=== PATIENT | female | born 1955 | race Caucasian/White ===

== ENCOUNTER → 2019-09-05 | Outpatient (CLI) | payer MEDICARE, OTHER ==
--- NOTE | 2019-09-05 13:12 | US ---
EXAMINATION TYPE: US carotid duplex BILAT DATE OF EXAM: 09/05/2019 COMPARISON: NONE CLINICAL HISTORY: I65.23 OCCLUSION AND STENOSIS OF SARBJIT CAROTID ARTERIES. Stroke x 20 years ago EXAM MEASUREMENTS: RIGHT: Peak Systolic Velocity (PSV) cm/sec ----- Right CCA: 56.4 ----- Right ICA: 73.5 ----- Right ECA: 61.0 ICA/CCA ratio: 1.3 RIGHT: End Diastole cm/sec ----- Right CCA: 18.0 ----- Right ICA: 29.6 ----- Right ECA: 12.1 LEFT: Peak Systolic Velocity (PSV) cm/sec ----- Left CCA: 64.5 ----- Left ICA: 55.4 ----- Left ECA: 60.1 ICA/CCA ratio: 0.9 LEFT: End Diastole cm/sec ----- Left CCA: 16.5 ----- Left ICA: 21.3 ----- Left ECA: 9.5 VERTEBRALS (direction of flow): Right Vertebral: Antegrade Left Vertebral: Antegrade Rhythm: Normal No elevated velocities, no significant stenosis or plaque visualized. Bilateral wall thickening. IMPRESSION: Mild degree of grayscale atheromatous plaquing with no sonographically evident hemodynam ically significant stenosis within either visualized carotid arterial system.. Criteria for Assigning % of Stenosis / Diameter reduction (Estimation based on the indirect measurements of the internal carotid artery velocities (ICA PSV). 1. Normal (no stenosis)=ICA PSV < 125 cm/s: ratio < 2.0: ICA EDV<40 cm/s. 2. Less than 50% stenosis=ICA PSV < 125 cm/s: ratio < 2.0: ICA EDV<40 cm/s. 3. 50 to 69% stenosis=ICA PSV of 125 to 230 cm/s: ration 2.0 ? 4.0: ICA EDV 40-100 cm/s. 4. Greater than 70% stenosis to near occlusion= ICA PSV > 230 cm/s: ratio > 4.0: ICA EDV > 100 cm/s. 5. Near occlusion= ICA PSV velocities may be low or undetectable: variable ratio and ICA EDV. 6. Total occlusion=unable to detect flow.
--- NOTE | 2019-09-05 17:46 | ECHOF ---
Referral Reason:I34.0 nonrhematic mitral regurgitation MEASUREMENTS -------- HEIGHT: 167.6 cm WEIGHT: 56.7 kg BP: RVIDd: 2.9 cm (< 3.3) IVSd: 1.0 cm (0.6 - 1.1) LVIDd: 3.2 cm (3.9 - 5.3) LVPWd: 1.2 cm (0.6 - 1.1) IVSs: 1.1 cm LVIDs: 2.5 cm LVPWs: 1.0 cm LAESV Index (A-L): 19.95 ml/m Ao Diam: 2.3 cm (2.0 - 3.7) AV Cusp: 1.6 cm (1.5 - 2.6) LA Diam: 2.3 cm (2.7 - 3.8) MV EXCURSION: 9.910 mm (> 18.000) MV EF SLOPE: 59 mm/s (70 - 150) EPSS: 0.6 cm MV E Ko: 0.74 m/s MV DecT: 165 ms MV A Ko: 0.95 m/s MV E/A Ratio: 0.78 AR PHT: 616 ms RAP: 5.00 mmHg RVSP: 20.68 mmHg FINDINGS -------- Sinus rhythm. This was a technically good study. The left ventricular size is normal. There is borderline concentric left ventricular hypertrophy. Overall left ventricular systolic function is normal with, an EF between 55 - 60 %. The diastolic filling pattern is normal for the age of the patient 15.31. The right ventricle is normal in size. Normal LA size by volume 22+/-6 ml/m2. The right atrial size is normal. Interatrial and interventricular septum intact. The aortic valve was not well visualized. There is mild aortic regurgitation. There is no evidenc e of aortic stenosis. The mitral valve leaflets are mildly thickened. Mild mitral regurgitation is present. Trace tricuspid regurgitation present. There is no evidence of pulmonary hypertension. The right ventricular systolic pressure, as measured by Doppler, is 20.68mmHg. There is no pulmonic regurgitation present. The aortic root size is normal. The inferior vena cava is mildly dilated. There is a trivial pericardial effusion present. CONCLUSIONS -------- 1. Sinus rhythm. 2. This was a technically good study. 3. The left ventricular size is normal. 4. There is borderline concentric left ventricular hypertrophy. 5. Overall left ventricular systolic function is normal with, an EF between 55 - 60 %. 6. The diastolic filling pattern is normal for the age of the patient 15.31 7. The right ventricle is normal in size. 8. Normal LA size by volume 22+/-6 ml/m2. 9. The right atrial size is normal. 10. Interatrial and interventricular septum intact. 11. The aortic valve was not well visualized. 12. There is mild aortic regurgitation. 13. There is no evidence of aortic stenosis. 14. The mitral valve leaflets are mildly thickened. 15. Mild mitral regurgitation is present. 16. Trace tricuspid regurgitation present. 17. There is no evidence of pulmonary hypertension. 18. The right ventricular systolic pressure, as measured by Doppler, is 20.68mmHg. 19. There is no pulmonic regurgitation present. 20. The aortic root size is normal. 21. The inferior vena cava is mildly dilated. 22. There is a trivial pericardial effusion present. [employer] SPECIALIST: Deepa Ugalde RDCS
== END | disposition home or self-care (01) ==
LOC: EEVIPCON 08-29 11:30 → RADECHMAIN 11:37
PROVIDERS: ATTEND Internal Medicine
DX: I65.23 Occlusion and stenosis of bilateral carotid arteries (principal); I08.0 Rheumatic disorders of both mitral and aortic valves; I31.3 Pericardial effusion (noninflammatory); I87.8 Other specified disorders of veins
CPT/HCPCS: 93306; 93880

== ENCOUNTER 2021-12-13 15:56 | Inpatient (IN) | payer MEDICARE, OTHER ==
[2021-12-13] MEDS ORDERED: SODIUM CHLORIDE 0.9% 500 ML 500 ML IV ONE (16:20)
[2021-12-13 16:47] LABS: Appearance,Urine Cloudy (Clear); Bacteria,Urine Rare /hpf; Bilirubin,Urine Negative (Negative); Blood,Urine Large (Negative); Color,Urine Yellow; Glucose,Urine (UA) Negative (Negative); Hyaline Casts,Urine 1 /lpf (0-2); Ketones,Urine Negative (Negative); Leukocyte Esterase,Urine Negative (Negative); Mucus,Urine Moderate /hpf; Nitrite,Urine Negative (Negative); Protein,Urine 2+ (Negative); RBC,Urine 5 /hpf (0-5); Squamous Epithelial Cell,Urine 4 /hpf (0-4); Urobilinogen,Urine <2.0 mg/dL (<2.0); WBC,Urine 4 /hpf (0-5)
--- NOTE | 2021-12-13 16:51 | ED ---
Fall HPI - General Chief Complaint: Fall Stated Complaint: rt hip pain Time Seen by Provider: 12/13/21 16:14 Source: patient, family, RN notes reviewed Mode of arrival: EMS Limitations: physical limitation - History of Present Illness Initial Comments: This is a 65-year-old female who presents to the emergency department for bilateral hip pain following a fall. Patient is aphasic following a stroke in 1998, and she does have a guardian with her. She states that yesterday morning, she fell on the left hip, and significant bruising was noted. However, she has been complaining of worsening pain in the right hip as opposed to the left, and states that it is radiating down the leg. Her guardian is unsure when she last saw her neurologist. She has also been treated for upper respiratory symptoms for the last 2 weeks. It is noted that she continues to cough and seems overall very fatigued and rather pale. She is usually able to get herself up, but has not been able to for the last few days. Her PCP gave her a z-conrad and medrol dose conrad, she finished the z-conrad yesterday and has one day left on the medrol dose conrad for her URI sx. she is not on oxygen at home, however she is noted to have a saturation of 89-90% on room air during triage. Patient was then placed on 2L oxygen via NC. Despite the low oxygen saturation, the patient denies any s hortness of breath or chest pain. MD Complaint: fall Place Fall Occurred: home Loss of Consciousness: none Symptoms Prior to Fall: none - Related Data Home Medications Medication Instructions Recorded Confirmed Atorvastatin [Lipitor] 10 mg PO DAILY 05/08/16 12/13/21 Citalopram Hydrobromide [CeleXA] 40 mg PO DAILY 05/08/16 12/13/21 Fexofenadine HCl [Viviane Allergy] 180 mg PO DAILY 05/08/16 12/13/21 Fludrocortisone [Florinef] 0.1 mg PO DAILY 05/08/16 12/13/21 Tolterodine ER [Detrol LA] 2 mg PO DAILY 05/08/16 12/13/21 diazePAM [Valium] 5 mg PO BID@0900,1600 05/08/16 12/13/21 tiZANidine HCL [Zanaflex] 4 mg PO BID@0900,1600 /16 12/13/21 Acetaminophen Tab [Tylenol Tab] 1,000 mg PO Q6H PRN 12/13/21 12/13/21 Acetaminophen-Codeine 300-30mg 1 tab PO BID@0900,1600 12/13/21 12/13/21 [Tylenol w/codeine #3] Aspirin EC [Ecotrin Low Dose] 81 mg PO DAILY 12/13/21 12/13/21 Cholecalciferol [Vitamin D3 (25 50 mcg PO HS@1600 12/13/21 12/13/21 Mcg = 1000 Iu)] Pantoprazole [Protonix] 40 mg PO DAILY 12/13/21 12/13/21 Allergies Allergy/AdvReac Type Severity Reaction Status Date / Time No Known Allergies Allergy Verified 12/13/21 19:22 Review of Systems ROS Statement: Those systems with pertinent positive or pertinent negative responses have been documented in the HPI. ROS Other: All systems not noted in ROS Statement are negative. Constitutional: Denies: fever, chills ENT: Denies: ear pain, throat pain Respiratory: Reports: cough. Denies: dyspnea Cardiovascular: Denies: chest pain, palpitations Endocrine: Reports: fatigue Gastrointestinal: Denies: abdominal pain, nausea, vomiting, diarrhea Genitourinary: Denies: urgency, dysuria Musculoskeletal: Reports: other (right hip pain). 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 Patient walks with quad cane and uses W/C prn History of Any Multi-Drug Resistant Organisms: None Reported Past Surgical History: Hysterectomy Additional Past Surgical History / Comment(s): colostomy due to CVA and patient no longer in control of bowels. Past Anesthesia/Blood Transfusion Reactions: No Reported Reaction Past Psychological History: Depression Past Alcohol Use History: None Reported Past Drug Use History: None Reported - Past Family History Mother Family Medical History: No Reported History General Exam Limitations: physical limitation General appearance: alert, in no apparent distress Head exam: Present: atraumatic, normocephalic, normal inspection ENT exam: Present: mucous membranes dry, normal external ear exam Neck exam: Present: normal inspection. Absent: tenderness, meningismus, lymphadenopathy Respiratory exam: Present: decreased breath sounds. Absent: respiratory di stress, wheezes, rales, rhonchi, stridor Cardiovascular Exam: Present: regular rate, normal rhythm, normal heart sounds. Absent: systolic murmur, diastolic murmur, rubs, gallop, clicks GI/Abdominal exam: Present: soft, normal bowel sounds. Absent: distended, tenderness, guarding, rebound, rigid Extremities exam: Present: normal inspection, full ROM, normal capillary refill. Absent: tenderness, pedal edema, joint swelling, calf tenderness Left Hip exam: Present: ecchymosis. Absent: tenderness, swelling, deformity, crepitus, dislocation, erythema, external rotation, internal rotation, s hortening Upper Leg exam: Present: normal inspection Neurovascular tendon exam: Present: no vascular compromise Right Hip exam: Present: normal inspection. Absent: tenderness, swelling, ecchymosis, deformity, dislocation, erythema, external rotation, internal rotation, shortening Upper Leg exam: Present: normal inspection Neurovascular tendon exam: Absent: pulse deficit, abnormal cap refill Neurological exam: Present: alert, oriented X3 Psychiatric exam: Present: normal affect, normal mood Skin exam: Present: warm, dry, intact, pallor. Absent: rash Course Vital Signs 12/13/21 12/13/21 12/13/21 16:01 16:30 16:45 Temperature 98.5 F Pulse Rate 94 Respiratory 18 18 Rate Blood Pressure 119/67 O2 Sat by Pulse 90 L 88 L 95 Oximetry 12/13/21 19:18 Temperature Pulse Rate 88 Respiratory 18 Rate Blood Pressure 122/70 O2 Sat by Pulse 94 L Oximetry Medical Decision Making - Medical Decision Making This is a 65-year-old female who presents to the emergency department for hip pain following a fall. A bilateral hip x-ray was obtained and revealed no acute abnormalities. It is unclear why she has right hip pain with radiation down the right leg if she injured the left hip, however workup at this time did not identify an acute cause. Chest x-ray obtained, which revealed no acute cardiopulmonary process. However, the patient is requiring oxygen via nasal cannula, as her oxygen saturation has been 89-90% on room air. Patient placed on 2L and now has oxygen saturations around 96%. Urinalysis did reveal blood in the urine. Her guardian states that she is dehydrated and has not had anything to drink for the past day. Patient denies seeing any vladimir blood in her urine. Patient rehydrated with 1500 mL normal saline. CTA of the chest obtained which did not identify a pulmonary embolism or other acute abnormality. CBC revealed an elevated WBC with left shift, however no infection has been identified at this point. The patient will be admitted under Dr. Portillo. I have started the patient on 1g of Ceftriaxone and ordered an abdominal US per his request. - Lab Data Result diagrams: 12/13/21 17:57 12/13/21 17:57 Lab Results 12/13/21 12/13/21 12/13/21 Range/Units 16:22 17:01 17:57 WBC 16.4 H (3.8-10.6) k/uL RBC 3.84 (3.80-5.40) m/uL Hgb 12.3 (11.4-16.0) gm/dL Hct 38.6 (34.0-46.0) % MCV 100.5 H (80.0-100.0) fL MCH 32.0 (25.0-35.0) pg MCHC 31.8 (31.0-37.0) g/dL RDW 13.1 (11.5-15.5) % Plt Count 200 (150-450) k/uL MPV 7.8 Neutrophils % 91 % Lymphocytes % 4 % Monocytes % 4 % Eosinophils % 0 % Basophils % 0 % Neutrophils # 14.9 H (1.3-7.7) k/uL Lymphocytes # 0.7 L (1.0-4.8) k/uL Monocytes # 0.6 (0-1.0) k/uL Eosinophils # 0.0 (0-0.7) k/uL Basophils # 0.0 (0-0.2) k/uL ESR 52 H (0-20) mm/hr Sodium (137-145) mmol/L Potassium (3.5-5.1) mmol/L Chloride (98-107) mmol/L Carbon Dioxide (22-30) mmol/L Anion Gap mmol/L BUN (7-17) mg/dL Creatinine (0.52-1.04) mg/dL Est GFR (CKD-EPI)AfAm (>60 ml/min/1.73 sqM) Est GFR (CKD-EPI)NonAf (>60 ml/min/1.73 sqM) Glucose (74-99) mg/dL Plasma Lactic Acid Jarek (0.7-2.0) mmol/L Calcium (8.4-10.2) mg/dL Total Bilirubin (0.2-1.3) mg/dL AST (14-36) U/L ALT (4-34) U/L Alkaline Phosphatase (38-126) U/L C-Reactive Protein (<1.0) mg/dL Total Protein (6.3-8.2) g/dL Albumin (3.5-5.0) g/dL Urine Color Yellow Urine Appearance Cloudy H (Clear) Urine pH 6.0 (5.0-8.0) Ur Specific [place] 1.030 (1.001-1.035) Urine Protein 2+ H (Negative) Urine Glucose (UA) Negative (Negative) Urine Ketones Negative (Negative) Urine Blood Large H (Negative) Urine Nitrite Negative (Negative) Urine Bilirubin Negative (Negative) Urine Urobilinogen <2.0 (<2.0) mg/dL Ur Leukocyte Esterase Negative (Negative) Urine RBC 5 (0-5) /hpf Urine WBC 4 (0-5) /hpf Ur Squamous Epith Cells 4 (0-4) /hpf Urine Bacteria Rare H (None) /hpf Hyaline Casts 1 (0-2) /lpf Urine Mucus Moderate H (None) /hpf Influenza Type A (PCR) Not Detected (Not Detectd) Influenza Type B (PCR) Not Detected (Not Detectd) RSV (PCR) Not Detected (Not Detectd) SARS-CoV-2 (PCR) Not Detected (Not Detectd) 12/13/21 12/13/21 Range/Units 17:57 17:57 WBC (3.8-10.6) k/uL RBC (3.80-5.40) m/uL Hgb (11.4-16.0) gm/dL Hct (34.0-46.0) % MCV (80.0-100.0) fL MCH (25.0-35.0) pg MCHC (31.0-37.0) g/dL RDW (11.5-15.5) % Plt Count (150-450) k/uL MPV Neutrophils % % Lymphocytes % % Monocytes % % Eosinophils % % Basophils % % Neutrophils # (1.3-7.7) k/uL Lymphocytes # (1.0-4.8) k/uL Monocytes # (0-1.0) k/uL Eosinophils # (0-0.7) k/uL Basophils # (0-0.2) k/uL ESR (0-20) mm/hr Sodium 137 (137-145) mmol/L Potassium 3.8 (3.5-5.1) mmol/L Chloride 104 (98-107) mmol/L Carbon Dioxide 30 (22-30) mmol/L Anion Gap 3 mmol/L BUN 40 H (7-17) mg/dL Creatinine 0.48 L (0.52-1.04) mg/dL Est GFR (CKD-EPI)AfAm >90 (>60 ml/min/1.73 sqM) Est GFR (CKD-EPI)NonAf >90 (>60 ml/min/1.73 sqM) Glucose 110 H (74-99) mg/dL Plasma Lactic Acid Jarek 1.0 (0.7-2.0) mmol/L Calcium 8.5 (8.4-10.2) mg/dL Total Bilirubin 0.7 (0.2-1.3) mg/dL AST 66 H (14-36) U/L ALT 71 H (4-34) U/L Alkaline Phosphatase 76 (38-126) U/L C-Reactive Protein 14.4 H (<1.0) mg/dL Total Protein 5.5 L (6.3-8.2) g/dL Albumin 2.8 L (3.5-5.0) g/dL Urine Color Urine Appearance (Clear) Urine pH (5.0-8.0) Ur Specific [place] (1.001-1.035) Urine Protein (Negative) Urine Glucose (UA) (Negative) Urine Ketones (Negative) Urine Blood (Negative) Urine Nitrite (Negative) Urine Bilirubin (Negative) Urine Urobilinogen (<2.0) mg/dL Ur Leukocyte Esterase (Negative) Urine RBC (0-5) /hpf Urine WBC (0-5) /hpf Ur Squamous Epith Cells (0-4) /hpf Urine Bacteria (None) /hpf Hyaline Casts (0-2) /lpf Urine Mucus (None) /hpf Influenza Type A (PCR) (Not Detectd) Influenza Type B (PCR) (Not Detectd) RSV (PCR) (Not Detectd) SARS-CoV-2 (PCR) (Not Detectd) Disposition Clinical Impression: Low O2 saturation Disposition: ADMITTED IP TO THIS HOSP Referrals: Miladys Portillo MD [Primary Care Provider] - 1-2 days
--- NOTE | 2021-12-13 16:55 | XR ---
EXAMINATION TYPE: XR chest 1V DATE OF EXAM: 12/13/2021 COMPARISON: 05/31/2010 HISTORY: Short of breath. Fall. TECHNIQUE: Single view FINDINGS: Heart is normal. Lungs are clear of infiltrate. There is no heart failure. There are no hil ar masses. Costophrenic angles are clear. IMPRESSION: No active cardiopulmonary disease. No change.
--- NOTE | 2021-12-13 16:57 | XR ---
EXAMINATION TYPE: XR Hip Bilateral Complete DATE OF EXAM: 12/13/2021 COMPARISON: NONE HISTORY: Fall. Bilateral hip pain TECHNIQUE: 4 views FINDINGS: The acetabula appear intact. Proximal femurs are intact. I see no fracture nor dislocation. Hip joint spaces are fairly normal. IMPRESSION: Negative bilateral hip exam. No fracture seen.
[2021-12-13 17:49] LABS: Influenza A Not Detected (Not Detectd); Influenza B Not Detected (Not Detectd)
[2021-12-13 18:38] LABS: Basophils % (A) 0 %; Eosinophils % (A) 0 %; HCT 38.6 % (34.0-46.0); HGB 12.3 gm/dL (11.4-16.0); Lymphocytes # (A) 0.7 k/uL (1.0-4.8); Lymphocytes % (A) 4 %; MCHC 31.8 g/dL (31.0-37.0); MCV 100.5 fL (80.0-100.0); Mean Platelet Volume 7.8; Monocytes # (A) 0.6 k/uL (0-1.0); Monocytes % (A) 4 %; Neutrophils # (A) 14.9 k/uL (1.3-7.7); Neutrophils % (A) 91 %; Platelet Count 200 k/uL (150-450); RBC 3.84 m/uL (3.80-5.40); RDW 13.1 % (11.5-15.5); WBC 16.4 k/uL (3.8-10.6)
[2021-12-13 18:45] LABS: Potassium 3.8 mmol/L (3.5-5.1)
[2021-12-13 18:48] LABS: ALT 71 U/L (4-34); AST 66 U/L (14-36); African American GFR (CKD) >90 (>60 ml/min/1.73 sqM); Albumin 2.8 g/dL (3.5-5.0); Alkaline Phosphatase 76 U/L (38-126); Anion Gap 3 mmol/L; Blood Urea Nitrogen 40 mg/dL (7-17); Calcium 8.5 mg/dL (8.4-10.2); Carbon Dioxide 30 mmol/L (22-30); Chloride 104 mmol/L (98-107); Glucose 110 mg/dL (74-99); Non-African American GFR(CKD) >90 (>60 ml/min/1.73 sqM); Sodium 137 mmol/L (137-145); Total Bilirubin 0.7 mg/dL (0.2-1.3); Total Protein 5.5 g/dL (6.3-8.2)
[2021-12-13 19:04] LABS: C Reactive Protein 14.4 mg/dL (<1.0)
[2021-12-13 19:13] LABS: Erythrocyte Sedimentation Rate 52 mm/hr (0-20)
[2021-12-13] MEDS ORDERED: SODIUM CHLORIDE 0.9% 1,000 ML IV STA (19:38)
--- NOTE | 2021-12-13 20:59 | CT ---
EXAMINATION TYPE: CT angio chest DATE OF EXAM: 12/13/2021 COMPARISON: None HISTORY: chest pain CT DLP: 234.6 mGycm Automated exposure control for dose reduction was used. CONTRAST: Performed with IV Contrast, patient injected with 100 mL of Isovue 300. There are Three-D postprocessed images. Images obtained from the thoracic inlet to the diaphragm with IV contrast. There is an enlarged thyroid gland consistent with multinodular goiter. Thoracic aorta is atheromatou s. There is no mediastinal adenopathy. There are no hilar masses. Heart size is fairly normal. There is no pericardial effusion. There is normal contrast opacification of the pulmonary arteries. There are no filling defects. There is some mild atelectasis at the lung bases. The thoracic spine is intact. No compression fracture. Sternum is intact. IMPRESSION: No evidence of pulmonary embolism. Atherosclerotic vascular disease. No aneurysm. Mild subsegmental a telectasis at the lung bases. No suspicious pulmonary mass.
[2021-12-13] MEDS ORDERED: ACETAMINOPHEN TAB 325 MG TAB PO PRN (22:45)
[2021-12-13] MEDS ORDERED: NALOXONE 0.4 MG/ML 1 ML VIAL IV PRN (22:45)
[2021-12-13] MEDS ORDERED: ONDANSETRON 4 MG/2 ML VIAL IVP PRN (22:45)
[2021-12-13] MEDS ORDERED: cefTRIAXone IN SWFI 1,000 MG/10 ML SYRINGE IVP STA (22:49)
[2021-12-13] MEDS: SODIUM CHLORIDE 0.9% 1,000 ML IV SCH (23:09)
[2021-12-14 00:12] LABS: Amylase 43 U/L (30-110); Lipase 26 U/L (23-300)
--- NOTE | 2021-12-14 00:20 | US ---
EXAMINATION TYPE: US abdomen limited DATE OF EXAM: 12/13/2021 COMPARISON: MRI liver 2016 CLINICAL HISTORY: elevated liver enzymes, r/o source of infection. Elevated liver enzymes. Hx of hepa tic hemangiomas and 8 mm pancreatic body/tail cyst seen on 2016 MRI. EXAM MEASUREMENTS: Liver Length: 14.0 cm Gallbladder Wall: 0.36 cm CBD: 0.37 cm Right Kidney: 9.1 x 4.4 x 4.7 cm Pancreas: Hypoechoic appearing focus with posterior enhancement measuring 1.2 x 0.7 x 0.7 cm. Liver: Hepatic hemangioma right liver dome measuring 1.9 x 2.0 x 2.0 cm Gallbladder: Limited visualization; slightly thickened wall Evidence for sonographic Easton's sign: No CBD: Limited visualization due to overlying bowel gas and patient inability to take deep breath; CBD appears wnl at pancreatic head. Right Kidney: No hydronephrosis or masses seen Difficult exam due to patient having right-sided paralysis and inability to take deep breaths. IMPRESSION: There is a 6 mm cystic appearing area in the body of the pancreas. Bile ducts are not dilated. There is a 12 x 7 mm cystic area in the pancreas also. Single hyperechoic focus in the superior right lobe of the liver could 2 cm be a hemangioma.. This appears unchanged compared to old CT scan of 04/12/2016 and therefore benign. I do not have any recent CT scan to compare the pancreas. No gallstones.
[2021-12-14] MEDS: oxyCODONE-APAP 5-325MG 1 EACH TAB PO PRN ×2 (05:50→13:36)
[2021-12-14] MEDS: LORATADINE 10 MG TAB PO SCH (08:24)
[2021-12-14] MEDS: tiZANidine 4 MG TAB PO SCH ×2 (08:24→15:08)
[2021-12-14] MEDS: Acetaminophen-Codeine 300-30mg TAB PO SCH ×2 (08:24→15:08)
[2021-12-14] MEDS: ATORVASTATIN 10 MG TAB PO SCH (08:25)
[2021-12-14] MEDS: FLUDROCORTISONE 0.1 MG TAB PO SCH (08:25)
[2021-12-14] MEDS: PANTOPRAZOLE 40 MG TABLET PO SCH (08:25)
[2021-12-14] MEDS: CITALOPRAM HYDROBROMIDE 20 MG TAB PO SCH (08:25)
[2021-12-14] MEDS: ASPIRIN 81 MG PO SCH (08:25)
[2021-12-14] MEDS: diazePAM 5 MG TAB PO SCH ×2 (08:27→15:08)
[2021-12-14] MEDS ORDERED: IOPAMIDOL CONTRAST (ORAL USE) VIAL PO PRN (13:32)
--- NOTE | 2021-12-14 14:57 | P.HPIM ---
History of Present Illness H&P Date: 12/14/21 HISTORY OF PRESENT ILLNESS This is a 65-year-old female patient with past medical history of CVA occurred during carotid artery surgery in 1998 with aphasia and right-sided paralysis, hyperlipidemia, vitamin D deficiency, seasonal ALLERGIES, gastroesophageal reflux disease, overactive bladder. Patient sustained a fall onto her left hip with significant bruising with worsening pain in her right hip as well with radiation down her right leg. Patient has had upper respiratory infection symptoms for the past 2 weeks and recently treated with Z-Dayday and Medrol Dosepak. She's had increasing fatigue and cough with yellow sputum. She still feels very congested. She denies having any shortness of breath. Patient presented to [facility] emergency center for further evaluation. Initial pulse ox was 88-90%. She was found to be afebrile, heart rate 94, blood pressure 119/67. EKG was a sinus rhythm. WBC 16.4, hemoglobin 12.3, platelet count 200. Electrolytes normal. BUN 40 creatinine 0.48. Blood sugar 110. Urinalysis cloudy, blood large. Influenza A, influenza B, RSV, SARS Covid PCR all not detected. Lactic acid 1.0. C- reactive protein 14.4. Sed rate 52. ProBNP 883. AST 66, ALT 71. Amylase 43, lipase 26. Albumin 2.8. Bilateral hip x-rays negative. No fracture seen. Abdominal ultrasound revealed 6 mm cystic appearing area in the body of the pancreas. Bile ducts are not dilated. 12 x 7 mm cystic area in the pancreas also. Single hyperechoic focus on the superior right lobe of the liver could be hemangioma. This appears unchanged compared to old CAT scan on [address] angiogram of the chest revealed no evidence of pulmonary embolism. Atherosclerotic vascular disease. No aneurysm. Mild subsegmental atelectasis at the lung bases. No suspicious pulmonary mass. Chest x-ray reveals no acute cardio pulmonary disease. Patient was provided 500 mL fluid bolus, 1 dose of ceftriaxone, blood culture obtained. Patient is seen today in the emergency center waiting for a bed on the [facility] floor. REVIEW OF SYSTEMS Constitutional: No fever, no chills, no night sweats. No weight change. No weakness, fatigue or lethargy. No daytime sleepiness. EENT: No headache. No blurred vision or double vision, no loss of vision. No loss of Hearing, no ringing in the ears, no dizziness. No nasal drainage or congestion. No epistaxis. No sore throat. Lungs: No shortness of breath, cough, no sputum production. No wheezing. Cardiovascular: No chest pain, no lower extremity edema. No palpitations. No paroxysmal nocturnal dyspnea. No orthopnea. No lightheadedness or dizziness. No syncopal episodes. Abdominal: No abdominal pain. No nausea, vomiting. No diarrhea. No constipation. No bloody or tarry stools. No loss of appetite. Genitourinary: No dysuria, increased frequency, urgency. No urinary retention. Musculoskeletal: No myalgias. No muscle weakness, noted gait dysfunction, no frequent falls. No back pain. No neck pain. Reports bilateral hip pain more so on the right. Integumentary: No wounds, no lesions. No rash or pruritus. No unusual bruising. No change in hair or nails. Neurologic: Chronic aphasia. No facial droop. No change in mentation. No head injury. No headache. Chronic right-sided paralysis. No paresthesia. Psychiatric: No depression. No anxiety. No mood swings. Endocrine: No abnormal blood sugars. No weight change. No excessive sweating or thirst. No cold intolerance. 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 FAMILY HISTORY Father at age 89 from old age. Mother is alive at age 72 with heart failure. PHYSICAL EXAMINATION Gen: This is a 65-year-old female. She is resting on the ER and appears to be uncomfortable canary to right hip. HEENT: Head is atraumatic, normocephalic. Pupils equal, round. Sclerae is anicteric. NECK: Supple. No JVD. No lymphadenopathy. No thyromegaly. LUNGS: Clear to auscultation. No wheezes or rhonchi. No intercostal retractions. HEART: Regular rate and rhythm. No murmur. ABDOMEN: Soft. Bowel sounds are present. No masses. No tenderness. Ostomy with formed stool. EXTREMITIES: No pedal edema. No calf tenderness. NEUROLOGICAL: Patient is awake, alert and oriented x3. Right sided spastic hemiplegia, aphasia. ASSESSMENT AND PLAN 1. Hypoxia without acute respiratory failure of unclear etiology, possible underlying COPD. Consult with pulmonary medicine. 2. Recent treatment for upper respiratory infection with Z-Dayday and Medrol Dosepak. 3. Bilateral hip pain without fracture seen on x-ray. Patient continues to have significant pain in the right hip. Continue Ponder 5 every 4 hours as needed 4. 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 5. Hyperlipidemia. Continue atorvastatin 10 mg daily. 6. Vitamin D deficiency. Continue supplement. 7. Seasonal ALLERGIES. Continue Viviane 180 mg daily. 8. Gastroesophageal reflux disease. Continue Protonix 40 mg daily. 9. Overactive bladder. Continue Detrol LA 2 mg daily. 10. Remote history of tobacco use. 11. 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 Continue Zanaflex 4 mg twice daily, Percocet one every 4 hours as needed, Valium 5 mg twice daily. 12. DVT prophylaxis. Lovenox subcu. Patient will be admitted to the hospital for a minimum of 2 night stay. DISCHARGE PLAN TBD. Consult with PT and OT. Impression and plan of care have been directed as dictated by the signing physician. Carolyne Dhillon nurse practitioner acting as scribe for signing physician. 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 Patient walks with quad cane and uses W/C prn History of Any Multi-Drug Resistant Organisms: None Reported Past Surgical History: Hysterectomy Additional Past Surgical History / Comment(s): colostomy due to CVA and patient no longer in control of bowels. Past Anesthesia/Blood Transfusion Reactions: No Reported Reaction Past Psychological History: Depression Past Alcohol Use History: None Reported Past Drug Use History: None Reported - Past Family History Mother Family Medical History: No Reported History Father Family Medical History: CVA/TIA Additional Family Medical History / Comment(s): Father after a fall with brain bleed. Medications and Allergies Home Medications Medication Instructions Recorded Confirmed Type Atorvastatin [Lipitor] 10 mg PO DAILY 05/08/16 12/13/21 History Citalopram Hydrobromide [CeleXA] 40 mg PO DAILY 05/08/16 12/13/21 History Fexofenadine HCl [Viviane Allergy] 180 mg PO DAILY 05/08/16 12/13/21 History Fludrocortisone [Florinef] 0.1 mg PO DAILY 05/08/16 12/13/21 History Tolterodine ER [Detrol LA] 2 mg PO DAILY 05/08/16 12/13/21 History tiZANidine HCL [Zanaflex] 4 mg PO BID@0900,1600 05/08/16 12/13/21 History Acetaminophen Tab [Tylenol] 1,000 mg PO Q6H PRN 12/13/21 12/13/21 History Aspirin EC [Ecotrin Low Dose] 81 mg PO DAILY 12/13/21 12/13/21 History Cholecalciferol [Vitamin D3 (25 50 mcg PO HS@1600 12/13/21 12/13/21 History Mcg = 1000 Iu)] Pantoprazole [Protonix] 40 mg PO DAILY 12/13/21 12/13/21 History HYDROcodone/APAP 5-325MG [Ponder 1 each PO Q4HR PRN #18 tab 12/16/21 Rx 5-325] Ipratropium-Albuterol Nebulize 3 ml INHALATION RT-TID ml 12/16/21 Rx [Duoneb 0.5 mg-3 mg/3 ml Soln] diazePAM [Valium] 5 mg PO BID@0900,1600 #6 tab 12/16/21 Rx Allergies Allergy/AdvReac Type Severity Reaction Status Date / Time No Known Allergies Allergy Verified 12/13/21 19:22 Physical Exam Vitals: Vital Signs Temp Pulse Resp BP Pulse Ox 12/14/21 07:11 98.1 F 89 18 124/74 95 12/13/21 19:18 88 18 122/70 94 L 12/13/21 16:45 18 95 12/13/21 16:30 88 L 12/13/21 16:01 98.5 F 94 18 119/67 90 L Intake and Output 12/13/21 12/14/21 12/14/21 22:59 06:59 14:59 Other: Weight 61.235 kg Results CBC & Chem 7: 12/13/21 17:57 12/14/21 15:59 Labs: Abnormal Lab Results - Last 24 Hours (Table) 12/13/21 12/13/21 12/13/21 Range/Units 16:22 17:57 17:57 WBC 16.4 H (3.8-10.6) k/uL MCV 100.5 H (80.0-100.0) fL Neutrophils # 14.9 H (1.3-7.7) k/uL Lymphocytes # 0.7 L (1.0-4.8) k/uL ESR 52 H (0-20) mm/hr BUN 40 H (7-17) mg/dL Creatinine 0.48 L (0.52-1.04) mg/dL Glucose 110 H (74-99) mg/dL AST 66 H (14-36) U/L ALT 71 H (4-34) U/L C-Reactive Protein 14.4 H (<1.0) mg/dL Total Protein 5.5 L (6.3-8.2) g/dL Albumin 2.8 L (3.5-5.0) g/dL Urine Appearance Cloudy H (Clear) Urine Protein 2+ H (Negative) Urine Blood Large H (Negative) Urine Bacteria Rare H (None) /hpf Urine Mucus Moderate H (None) /hpf
[2021-12-14] MEDS: CHOLECALCIFEROL 25 MCG (1000 IU) TABLET PO SCH (15:08)
--- NOTE | 2021-12-14 15:57 | CT ---
EXAMINATION TYPE: CT abdomen pelvis wo con DATE OF EXAM: 12/14/2021 COMPARISON: CT 04/12/2016 HISTORY: abdominal pain, hematuria CT DLP: 582.6 mGycm Automated exposure control for dose reduction was used. TECHNIQUE: Helical acquisition of images from the lung bases through the pelvis. Patient received or al contrast only. FINDINGS: Lack of intravenous contrast could compromise sensitivity. LUNG BASES: Lung bases show dependent atelectatic changes, small effusion AORTA: No significant abnormality is appreciated. LIVER/GB: Low dense foci within the liver are again noted and show a similar appearance. PANCREAS: No significant abnormality is seen. SPLEEN: No significant abnormality is seen. ADRENALS: No significant abnormality is seen. KIDNEYS: There are 2 nonobstructive calculi in the right kidney 1 in the anterior calyx of the midpol e the right kidney, and another the upper pole, some mild hydronephrosis on the right shows a stable appearance REPRODUCTIVE ORGANS: Not seen URINARY BLADDER: Contrast material present within the urinary bladder1. BOWEL: No evident bowel obstruction. Ostomy present in the left lower quadrant. High dense material is present within the rectum which may represent inspissated fecal debris, chronic, similar to prior exam. FREE AIR: No Free Air is visible. ASCITES: None visible. PELVIC ADENOPATHY: None visualized. RETROPERITONEAL ADENOPATHY: No Retroperitoneal Adenopathy visible. OSSEOUS STRUCTURES: No significant abnormality is seen. IMPRESSION: NONCONTRAST EXAM. BASILAR ATELECTASIS, SMALL EFFUSION. NONOBSTRUCTIVE RIGHT RENAL CALCULUS. POORLY CH ARACTERIZED LIVER LESIONS POSTOP CHANGES.
[2021-12-14 16:44] LABS: African American GFR (CKD) >90 (>60 ml/min/1.73 sqM); Blood Urea Nitrogen 21 mg/dL (7-17); Non-African American GFR(CKD) >90 (>60 ml/min/1.73 sqM)
[2021-12-14] MEDS: HYDROcodone/APAP 5-325MG 1 EACH TAB PO PRN (19:20)
[2021-12-14] MEDS: ACETAMINOPHEN TAB 500 MG TAB PO PRN (21:00)
[2021-12-14] MEDS: ALPRAZolam 0.25 MG TAB PO PRN (21:00)
[2021-12-14] MEDS: SODIUM CHLORIDE 0.9% 1,000 ML IV SCH ×2 (23:49→23:50)
[2021-12-15] MEDS: oxyCODONE-APAP 5-325MG 1 EACH TAB PO PRN (04:41)
[2021-12-15] MEDS: Acetaminophen-Codeine 300-30mg TAB PO SCH ×2 (08:35→16:54)
[2021-12-15] MEDS: PANTOPRAZOLE 40 MG TABLET PO SCH (08:35)
[2021-12-15] MEDS: OXYBUTYNIN XL 5 MG TAB.ER.24 PO SCH (08:36)
[2021-12-15] MEDS: ENOXAPARIN 40 MG/0.4 ML SYRINGE SQ SCH (08:36)
[2021-12-15] MEDS: diazePAM 5 MG TAB PO SCH ×2 (08:36→16:55)
[2021-12-15] MEDS: LORATADINE 10 MG TAB PO SCH (08:36)
[2021-12-15] MEDS: ATORVASTATIN 10 MG TAB PO SCH (08:36)
[2021-12-15] MEDS: CITALOPRAM HYDROBROMIDE 20 MG TAB PO SCH (08:36)
[2021-12-15] MEDS: ASPIRIN 81 MG PO SCH (08:36)
--- NOTE | 2021-12-15 09:47 | P.PN ---
Subjective Progress Note Date: 12/15/21 HISTORY OF PRESENT ILLNESS This is a 65-year-old female patient with past medical history of CVA occurred during carotid artery surgery in 1998 with aphasia and right-sided paralysis, hyperlipidemia, vitamin D deficiency, seasonal ALLERGIES, gastroesophageal reflux disease, overactive bladder. Patient sustained a fall onto her left hip with significant bruising with worsening pain in her right hip as well with radiation down her right leg. Patient has had upper respiratory infection symptoms for the past 2 weeks and recently treated with Z-Dayday and Medrol Dosepak. She's had increasing fatigue and cough with yellow sputum. She still feels very congested. She denies having any shortness of breath. Patient presented to [facility] emergency center for further evaluation. Initial pulse ox was 88-90%. She was found to be afebrile, heart rate 94, blood pressure 119/67. EKG was a sinus rhythm. WBC 16.4, hemoglobin 12.3, platelet count 200. Electrolytes normal. BUN 40 creatinine 0.48. Blood sugar 110. Urinalysis cloudy, blood large. Influenza A , influenza B, RSV, SARS Covid PCR all not detected. Lactic acid 1.0. C- reactive protein 14.4. Sed rate 52. ProBNP 883. AST 66, ALT 71. Amylase 43, lipase 26. Albumin 2.8. Bilateral hip x-rays negative. No fracture seen. Abdominal ultrasound revealed 6 mm cystic appearing area in the body of the pancreas. Bile ducts are not dilated. 12 x 7 mm cystic area in the pancreas also. Single hyperechoic focus on the superior right lobe of the liver could be hemangioma. This appears unchanged compared to old CAT scan on [address] angiogram of the chest revealed no evidence of pulmonary embolism. Atherosclerotic vascular disease. No aneurysm. Mild subsegmental atelectasis at the lung bases. No suspicious pulmonary mass. Chest x-ray reveals no acute cardio pulmonary disease. Patient was provided 500 mL fluid bolus, 1 dose of ceftriaxone, blood culture obtained. Patient is seen today in the emergency center waiting for a bed on the [facility] floor. 12/15: Patient is seen today on the [facility] floor. She has been afebrile, heart rate 82, blood pressure 144/81, pulse ox 98% on room air. Repeat BUN 21 and creatinine 0.45 was ordered yesterday afternoon in anticipation of CAT scan with contrast which is delayed for 24 hours. CAT scan of the abdomen and pelvis with out contrast revealed basilar atelectasis, small effusion. Nonobstructive right renal calculus. Poorly characterized liver lesions. CAT scan with contrast will be performed today. Patient continues to complain of pain in the right hip area. She currently denies shortness of breath. She will be seen today by Dr. Kerr. REVIEW OF SYSTEMS Constitutional: No fever, no chills, no night sweats. No weight change. No weakness, fatigue or lethargy. No daytime sleepiness. EENT: No headache. No blurred vision or double vision, no loss of vision. No loss of Hearing, no ringing in the ears, no dizziness. No nasal drainage or congestion. No epistaxis. No sore throat. Lungs: No shortness of breath, cough, no sputum production. No wheezing. Cardiovascular: No chest pain, no lower extremity edema. No palpitations. No paroxysmal nocturnal dyspnea. No orthopnea. No lightheadedness or dizziness. No syncopal episodes. Abdominal: No abdominal pain. No nausea, vomiting. No diarrhea. No constipation. No bloody or tarry stools. No loss of appetite. Genitourinary: No dysuria, increased frequency, urgency. No urinary retention. Musculoskeletal: No myalgias. No muscle weakness, noted gait dysfunction, no frequent falls. No back pain. No neck pain. Reports right hip/leg pain Integumentary: No wounds, no lesions. No rash or pruritus. No unusual b ruising. No change in hair or nails. Neurologic: Chronic aphasia. No facial droop. No change in mentation. No head injury. No headache. Chronic right-sided paralysis. No paresthesia. Psychiatric: No depression. No anxiety. No mood swings. Endocrine: No abnormal blood sugars. No weight change. No excessive sweating or thirst. No cold intolerance. PHYSICAL EXAMINATION Gen: This is a 65-year-old female. She is resting on the ER and appears to be uncomfortable canary to right hip. HEENT: Head is atraumatic, normocephalic. Pupils equal, round. Sclerae is anicteric. NECK: Supple. No JVD. No lymphadenopathy. No thyromegaly. LUNGS: Clear to auscultation. No wheezes or rhonchi. No intercostal retractions. HEART: Regular rate and rhythm. No murmur. ABDOMEN: Soft. Bowel sounds are present. No masses. No tenderness. Ostomy with formed stool. EXTREMITIES: No pedal edema. No calf tenderness. NEUROLOGICAL: Patient is awake, alert and oriented x3. Right sided spastic hemiplegia, aphasia. ASSESSMENT AND PLAN 1. Hypoxia without acute respiratory failure of unclear etiology, possible underlying COPD. Consult with pulmonary medicine. 2. Recent treatment for upper respiratory infection with Z-Dayday and Medrol Dosepak. 3. Bilateral hip pain without fracture seen on x-ray. Patient continues to have significant pain in the right hip. Continue Raven 5 every 4 hours as needed 4. 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 5. Hyperlipidemia. Continue atorvastatin 10 mg daily. 6. Vitamin D deficiency. Continue supplement. 7. Seasonal ALLERGIES. Continue Viviane 180 mg daily. 8. Gastroesophageal reflux disease. Continue Protonix 40 mg daily. 9. Overactive bladder. Continue Detrol LA 2 mg daily. 10. Remote history of tobacco use. 11. 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 Continue Zanaflex 4 mg twice daily, Percocet one every 4 hours as needed, Valium 5 mg twice daily. 12. DVT prophylaxis. Lovenox subcu. DISCHARGE PLAN TBD. Consult with PT and OT. Impression and plan of care have been directed as dictated by the signing physician. Carolyne Dhillon nurse practitioner acting as scribe for signing physician. Objective - Vital Signs Vital signs: Vital Signs Temp 97.3 F L 12/15/21 05:29 Pulse 82 12/15/21 05:29 Resp 18 12/15/21 05:29 BP 144/81 12/15/21 05:29 Pulse Ox 98 12/15/21 05:29 Intake & Output 12/14/21 12/15/21 12/15/21 18:59 06:59 18:59 Intake Total 600 Balance 600 Weight 61.235 kg Intake: Intake, IV Titration 600 Amount Sodium Chloride 0.9% 1, 600 000 ml @ 50 mls/hr IV . Q20H FARHAN Rx#:[id number] Other: Voiding Method Bedpan # Voids 3 - Labs CBC & Chem 7: 12/13/21 17:57 12/14/21 15:59 Labs: Abnormal Lab Results - Last 24 Hours (Table) 12/14/21 Range/Units 15:59 BUN 21 H (7-17) mg/dL Creatinine 0.45 L (0.52-1.04) mg/dL Microbiology - Last 24 Hours (Table) 12/13/21 23:00 Blood Culture - Preliminary Blood No Growth after 24 hours 12/13/21 22:45 Blood Culture - Preliminary Blood No Growth after 24 hours
[2021-12-15] MEDS: FLUDROCORTISONE 0.1 MG TAB PO SCH (09:51)
[2021-12-15] MEDS: tiZANidine 4 MG TAB PO SCH ×2 (09:51→16:55)
[2021-12-15] MEDS: HYDROcodone/APAP 5-325MG 1 EACH TAB PO PRN ×2 (11:25→22:23)
[2021-12-15 14:09] VITALS: BMI 21.7
--- NOTE | 2021-12-15 14:32 | P.CNPUL ---
History of Present Illness Consult date: 12/15/21 Reason for consult: dyspnea History of present illness: 65-year-old patient, previous history of an extensive stroke leading this patient with right-sided weakness/paralysis/hemiplegia and excessive aphasia. The patient was hospitalized as the patient was feeling congested at home and she had also increased fatigue and pulmonary consultation was requested and the patient was found to be having some limited hypoxemia. The patient is currently on 2 L of oxygen nasal cannula with a pulse ox of 94-95%. She has a weak cough. She has a congested cough. Denies having any aspiration. The patient has no fever. The patient is no chills. The patient has received a course of Z-Dayday and Medrol Dosepak on outpatient basis pain currently she is not taking any form of respiratory medications steroids and antibiotics. Furthermore, a computed tomography scan of the chest was completed and the patient was found to have underlying COPD. Atelectatic changes in lung bases. No other airspace disease or pneumonias. The patient also had a CAT scan of the abdomen that showed right renal calculus. Atelectatic changes were again seen in lung bases. The white cell count of 16.4 with hemoglobin 12.3. BUN is at 21 with a creatinine of 0.4. Influenza A and B was negative.: 19 testing was negative. RSV by PCR was also negative. Pro-calcitonin level is at 883. Review of Systems Constitutional: No fever, no chills, no night sweats. No weight change. No weakness, fatigue or lethargy. No daytime sleepiness. EENT: No headache. No blurred vision or double vision, no loss of vision. No loss of Hearing, no ringing in the ears, no dizziness. No nasal drainage or congestion. No epistaxis. No sore throat. Lungs: No shortness of breath, cough, no sputum production. No wheezing. Cardiovascular: No chest pain, no lower extremity edema. No palpitations. No paroxysmal nocturnal dyspnea. No orthopnea. No lightheadedness or dizziness. No syncopal episodes. Abdominal: No abdominal pain. No nausea, vomiting. No diarrhea. No constipation. No bloody or tarry stools. No loss of appetite. Genitourinary: No dysuria, increased frequency, urgency. No urinary retention. Musculoskeletal: No myalgias. No muscle weakness, noted gait dysfunction, no frequent falls. No back pain. No neck pain. Reports bilateral hip pain more so on the right. Integumentary: No wounds, no lesions. No rash or pruritus. No unusual bruising. No change in hair or nails. Neurologic: Chronic aphasia. No facial droop. No change in mentation. No head injury. No headache. Chronic right-sided paralysis. No paresthesia. Psychiatric: No depression. No anxiety. No mood swings. Endocrine: No abnormal blood sugars. No weight change. No excessive sweating or thirst. No cold intolerance. 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 Patient walks with quad cane and uses W/C prn History of Any Multi-Drug Resistant Organisms: None Reported Past Surgical History: Hysterectomy Additional Past Surgical History / Comment(s): colostomy due to CVA and patient no longer in control of bowels. Past Anesthesia/Blood Transfusion Reactions: No Reported Reaction Past Psychological History: Depression Past Alcohol Use History: None Reported Past Drug Use History: None Reported - Past Family History Mother Family Medical History: No Reported History Additional Family Medical History / Comment(s): Mother of CHF at the age of 72 yrs. Father Family Medical History: CVA/TIA Additional Family Medical History / Comment(s): Father after a fall with brain bleed. Medications and Allergies Home Medications Medication Instructions Recorded Confirmed Type Atorvastatin [Lipitor] 10 mg PO DAILY 05/08/16 12/13/21 History Citalopram Hydrobromide [CeleXA] 40 mg PO DAILY 05/08/16 12/13/21 History Fexofenadine HCl [Viviane Allergy] 180 mg PO DAILY 05/08/16 12/13/21 History Fludrocortisone [Florinef] 0.1 mg PO DAILY 05/08/16 12/13/21 History Tolterodine ER [Detrol LA] 2 mg PO DAILY 05/08/16 12/13/21 History diazePAM [Valium] 5 mg PO BID@0900,1600 05/08/16 12/13/21 History tiZANidine HCL [Zanaflex] 4 mg PO BID@0900,1600 05/08/16 12/13/21 History Acetaminophen Tab [Tylenol Tab] 1,000 mg PO Q6H PRN 12/13/21 12/13/21 History Acetaminophen-Codeine 300-30mg 1 tab PO BID@0900,1600 12/13/21 12/13/21 History [Tylenol w/codeine #3] Aspirin EC [Ecotrin Low Dose] 81 mg PO DAILY 12/13/21 12/13/21 History Cholecalciferol [Vitamin D3 (25 50 mcg PO HS@1600 12/13/21 12/13/21 History Mcg = 1000 Iu)] Pantoprazole [Protonix] 40 mg PO DAILY 12/13/21 12/13/21 History Allergies Allergy/AdvReac Type Severity Reaction Status Date / Time No Known Allergies Allergy Verified 12/13/21 19:22 Physical Exam Vitals: Vital Signs Temp Pulse Pulse Pulse Resp BP BP 12/15/21 12:20 98.1 F 82 18 156/85 12/15/21 05:29 97.3 F L 82 18 144/81 12/14/21 20:00 98.3 F 75 16 107/68 12/14/21 19:15 16 12/14/21 18:24 97.8 F 74 18 123/75 12/14/21 17:46 72 18 134/84 Pulse Ox 12/15/21 12:20 98 12/15/21 05:29 98 12/14/21 20:00 96 12/14/21 19:15 12/14/21 18:24 95 12/14/21 17:46 96 Intake and Output 12/14/21 12/15/21 12/15/21 22:59 06:59 14:59 Intake Total 600 Balance 600 Intake: Intake, IV Titration 600 Amount Sodium Chloride 0.9% 1, 600 000 ml @ 50 mls/hr IV . Q20H ON LICENSE OF [facility] Rx#:[id number] Other: Voiding Method Bedpan Bedpan # Voids 3 Weight 61.235 kg Gen: This is a 65-year-old female. She is resting on the ER and appears to be uncomfortable canary to right hip. Head exam was generally normal. There was no scleral icterus or corneal arcus. Mucous membranes were moist. HEENT: Head is atraumatic, normocephalic. Pupils equal, round. Sclerae is anicteric. NECK: Supple. No JVD. No lymphadenopathy. No thyromegaly. LUNGS: Clear to auscultation. No wheezes or rhonchi. No intercostal retractions. HEART: Regular rate and rhythm. No murmur. ABDOMEN: Soft. Bowel sounds are present. No masses. No tenderness. Ostomy with formed stool. EXTREMITIES: No pedal edema. No calf tenderness. NEUROLOGICAL: Patient is awake, alert and oriented x3. Right sided spastic hem iplegia, aphasia. Results - Laboratory Findings CBC and BMP: 12/13/21 17:57 12/14/21 15:59 Abnormal lab findings: Abnormal Labs 12/13/21 12/13/21 12/13/21 16:22 17:57 17:57 WBC 16.4 H MCV 100.5 H Neutrophils # 14.9 H Lymphocytes # 0.7 L ESR 52 H BUN 40 H Creatinine 0.48 L Glucose 110 H AST 66 H ALT 71 H C-Reactive Protein 14.4 H Total Protein 5.5 L Albumin 2.8 L Urine Appearance Cloudy H Urine Protein 2+ H Urine Blood Large H Urine Bacteria Rare H Urine Mucus Moderate H 12/14/21 15:59 WBC MCV Neutrophils # Lymphocytes # ESR BUN 21 H Creatinine 0.45 L Glucose AST ALT C-Reactive Protein Total Protein Albumin Urine Appearance Urine Protein Urine Blood Urine Bacteria Urine Mucus - Diagnostic Findings Chest x-ray: image reviewed Assessment and Plan Plan: 1 COPD exacerbation, no clear indication for pneumonia. Could be a bout of bronchitis that was treated on outpatient basis. Has some limited congestion. CAT scan of the chest showing atelectatic changes in lung bases bilaterally 2 acute hypoxic respiratory failure currently on 2 L of oxygen by nasal cannula 3 history of CVA with expressive aphasia and right-sided weakness 4 hyperlipidemia 5 degenerative arthritis 6 ALLERGIC rhinitis 7 overactive bladder Plan Aspiration precautions We'll put the patient on DuoNeb nebulized treatments 3 times a day Pulmonary toileting. No need for antibiotics and steroids. Resume all medication will continue to follow.
[2021-12-15] MEDS: SODIUM CHLORIDE 0.9% 1,000 ML IV SCH (16:30)
[2021-12-15] MEDS: CHOLECALCIFEROL 25 MCG (1000 IU) TABLET PO SCH (16:55)
[2021-12-15] MEDS: IPRATROPIUM-ALBUTEROL 3 ML NEB INHALATION SCH (21:11)
[2021-12-15] MEDS: ALPRAZolam 0.25 MG TAB PO PRN (23:31)
[2021-12-16] MEDS: ACETAMINOPHEN TAB 500 MG TAB PO PRN (00:40)
[2021-12-16 03:05] VITALS: RESP 20; TEMP 97.6
[2021-12-16] MEDS: HYDROcodone/APAP 5-325MG 1 EACH TAB PO PRN ×2 (04:26→11:54)
[2021-12-16 07:26] VITALS: BP 147/88; PULSE 78
--- NOTE | 2021-12-16 07:44 | P.DS ---
Providers Date of admission: 12/13/21 21:43 Expected date of discharge: 12/16/21 Attending physician: Miladys Portillo Consults: 12/14/21 13:27 Consult Physician Routine Consulting Provider: Linden Kerr Consult Reason/Comments: hypoxia, possible COPD, hx smoking Do you want consulting provider notified?: Yes Primary care physician: Miladys Portillo Hospital Course: HISTORY OF PRESENT ILLNESS This is a 65-year-old female patient with past medical history of CVA occurred during carotid artery surgery in 1998 with aphasia and right-sided paralysis, hyperlipidemia, vitamin D deficiency, seasonal ALLERGIES, gastroesophageal reflux disease, overactive bladder. Patient sustained a fall onto her left hip with significant bruising with worsening pain in her right hip as well with radiation down her right leg. Patient has had upper respiratory infection symptoms for the past 2 weeks and recently treated with Z-Dayday and Medrol Dosepak. She's had increasing fatigue and cough with yellow sputum. She still feels very congested. She denies having any shortness of breath. Patient presented to [facility] emergency center for further evaluation. Initial pulse ox was 88-90%. She was found to be afebrile, heart rate 94, blood pressure 119/67. EKG was a sinus rhythm. WBC 16.4, hemoglobin 12.3, platelet count 200. Electrolytes normal. BUN 40 creatinine 0.48. Blood sugar 110. Urinalysis cloudy, blood large. Influenza A, influenza B, RSV, SARS Covid PCR all not detected. Lactic acid 1.0. C- reactive protein 14.4. Sed rate 52. ProBNP 883. AST 66, ALT 71. Amylase 43, lipase 26. Albumin 2.8. Bilateral hip x-rays negative. No fracture seen. Abdominal ultrasound revealed 6 mm cystic appearing area in the body of the pancreas. Bile ducts are not dilated. 12 x 7 mm cystic area in the pancreas also. Single hyperechoic focus on the superior right lobe of the liver could be hemangioma. This appears unchanged compared to old CAT scan on [address] angiogram of the chest revealed no evidence of pulmonary embolism. Atherosclerotic vascular disease. No aneurysm. Mild subsegmental atelectasis at the lung bases. No suspicious pulmonary mass. Chest x-ray reveals no acute cardio pulmonary disease. Patient was provided 500 mL fluid bolus, 1 dose of ceftriaxone, blood culture obtained. Patient is seen today in the emergency center waiting for a bed on the [facility] floor. 12/15: Patient is seen today on the [facility] floor. She has been afebrile, heart rate 82, blood pressure 144/81, pulse ox 98% on room air. Repeat BUN 21 and creatinine 0.45 was ordered yesterday afternoon in anticipation of CAT scan with contrast which is delayed for 24 hours. CAT scan of the abdomen and pelvis without contrast revealed basilar atelectasis, small effusion. Nonobstructive right renal calculus. Poorly characterized liver lesions. CAT scan with contrast will be performed today. Patient continues to complain of pain in the right hip area. She currently denies shortness of breath. She will be seen today by Dr. Kerr. 12/16: She was seen yesterday by Dr. Kerr for COPD exacerbation, could be bronchitis but no clear indication for pneumonia. Patient was started on nebulizer treatments, no antibiotics or steroids. Patient has been afebrile, heart rate 70, blood pressure 147/88, pulse ox 97% on room air. Patient denies having any shortness of breath or cough. She continues to have pain in the right leg radiating down her leg. Discharge plan is for [facility] and patient will be discharged today in stable condition. DISCHARGE DIAGNOSES 1. Acute hypoxia respiratory failure secondary to exacerbation of COPD. 2. Recent treatment for upper respiratory infection with Z-Dayday and Medrol Dosepak. 3. Bilateral hip pain without fracture seen on x-ray. 4. 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 5. Hyperlipidemia. 6. Vitamin D deficiency. 7. Seasonal ALLERGIES. 8. Gastroesophageal reflux disease. 9. Overactive bladder. 10. Remote history of tobacco use. 11. 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 DISCHARGE PLAN Subacute rehab at [facility]. Greater than 35 minutes was utilized and coordinating patient's discharge. Impression and plan of care have been directed as dictated by the signing physician. Carolyne Dhillon nurse practitioner acting as scribe for signing physician. Patient Condition at Discharge: Stable Plan - Discharge Summary Discharge Rx Participant: No New Discharge Prescriptions: New Ipratropium-Albuterol Nebulize [Duoneb 0.5 mg-3 mg/3 ml Soln] 3 ml INHALATION RT-TID ml HYDROcodone/APAP 5-325MG [[place] 5-325] 1 each PO Q4HR PRN #18 tab PRN Reason: Moderate Pain Continue Tolterodine ER [Detrol LA] 2 mg PO DAILY Citalopram Hydrobromide [CeleXA] 40 mg PO DAILY Atorvastatin [Lipitor] 10 mg PO DAILY Fludrocortisone [Florinef] 0.1 mg PO DAILY Fexofenadine HCl [Viviane Allergy] 180 mg PO DAILY tiZANidine HCL [Zanaflex] 4 mg PO BID@0900,1600 Aspirin EC [Ecotrin Low Dose] 81 mg PO DAILY Acetaminophen Tab [Tylenol] 1,000 mg PO Q6H PRN PRN Reason: Pain diazePAM [Valium] 5 mg PO BID@0900,1600 #6 tab Pantoprazole [Protonix] 40 mg PO DAILY Cholecalciferol [Vitamin D3 (25 Mcg = 1000 Iu)] 50 mcg PO HS@1600 Discontinued Acetaminophen-Codeine 300-30mg [Tylenol w/codeine #3] 1 tab PO BID@0900,1600 Discharge Medication List Atorvastatin [Lipitor] 10 mg PO DAILY 05/08/16 [History] Citalopram Hydrobromide [CeleXA] 40 mg PO DAILY 05/08/16 [History] Fexofenadine HCl [Viviane Allergy] 180 mg PO DAILY 05/08/16 [History] Fludrocortisone [Florinef] 0.1 mg PO DAILY 05/08/16 [History] Tolterodine ER [Detrol LA] 2 mg PO DAILY 05/08/16 [History] tiZANidine HCL [Zanaflex] 4 mg PO BID@0900,1600 05/08/16 [History] Acetaminophen Tab [Tylenol] 1,000 mg PO Q6H PRN 12/13/21 [History] Aspirin EC [Ecotrin Low Dose] 81 mg PO DAILY 12/13/21 [History] Cholecalciferol [Vitamin D3 (25 Mcg = 1000 Iu)] 50 mcg PO HS@1600 12/13/21 [History] Pantoprazole [Protonix] 40 mg PO DAILY 12/13/21 [History] HYDROcodone/APAP 5-325MG [[place] 5-325] 1 each PO Q4HR PRN #18 tab 12/16/21 [Rx] Ipratropium-Albuterol Nebulize [Duoneb 0.5 mg-3 mg/3 ml Soln] 3 ml INHALATION RT-TID ml 12/16/21 [Rx] diazePAM [Valium] 5 mg PO BID@0900,1600 #6 tab 12/16/21 [Rx] Follow up Appointment(s)/Referral(s): Miladys Portillo MD [Primary Care Provider] - 1 Week Discharge Disposition: TRANSFER TO SNF/ECF
[2021-12-16] MEDS: ASPIRIN 81 MG PO SCH (08:15)
[2021-12-16] MEDS: OXYBUTYNIN XL 5 MG TAB.ER.24 PO SCH (08:15)
[2021-12-16] MEDS: CITALOPRAM HYDROBROMIDE 20 MG TAB PO SCH (08:16)
[2021-12-16] MEDS: Acetaminophen-Codeine 300-30mg TAB PO SCH (08:16)
[2021-12-16] MEDS: PANTOPRAZOLE 40 MG TABLET PO SCH (08:16)
[2021-12-16] MEDS: diazePAM 5 MG TAB PO SCH (08:16)
[2021-12-16] MEDS: ATORVASTATIN 10 MG TAB PO SCH (08:16)
[2021-12-16] MEDS: LORATADINE 10 MG TAB PO SCH (08:16)
[2021-12-16] MEDS: FLUDROCORTISONE 0.1 MG TAB PO SCH (08:16)
[2021-12-16] MEDS: tiZANidine 4 MG TAB PO SCH (08:16)
[2021-12-16] MEDS: ENOXAPARIN 40 MG/0.4 ML SYRINGE SQ SCH (08:17)
[2021-12-16] MEDS: IPRATROPIUM-ALBUTEROL 3 ML NEB INHALATION SCH ×2 (09:10→12:06)
--- NOTE | 2021-12-16 13:14 | P.PN ---
Subjective Progress Note Date: 12/16/21 65-year-old patient, previous history of an extensive stroke leading this patient with right-sided weakness/paralysis/hemiplegia and excessive aphasia. The patient was hospitalized as the patient was feeling congested at home and she had also increased fatigue and pulmonary consultation was requested and the patient was found to be having some limited hypoxemia. The patient is currently on 2 L of oxygen nasal cannula with a pulse ox of 94-95%. She has a weak cough. She has a congested cough. Denies having any aspiration. The patient has no fever. The patient is no chills. The patient has received a course of Z-Dayday and Medrol Dosepak on outpatient basis pain currently she is not taking any form of respiratory medications steroids and antibiotics. Furthermore, a computed tomography scan of the chest was completed and the patient was found to have underlying COPD. Atelectatic changes in lung bases. No other airspace disease or pneumonias. The patient also had a CAT scan of the abdomen that showed right renal calculus. Atelectatic changes were again seen in lung bases. The white cell count of 16.4 with hemoglobin 12.3. BUN is at 21 with a creatinine of 0.4. Influenza A and B was negative.: 19 testing was negative. RSV by PCR was also negative. Pro-calcitonin level is at 883. The patient is seen today 12/16/2021 and follow-up on the regular medical floor. She is currently sitting up in a chair at the bedside. Awake and alert in no acute distress. Continue O2 saturations in the 90s on room air. She's been afebrile. Hemodynamically stable. Blood cultures reveal no growth. She remains on bronchodilators. Lovenox for DVT prophylaxis. Objective - Vital Signs Vital signs: Vital Signs Temp 97.6 F 12/15/21 21:00 Pulse 78 12/16/21 04:30 Resp 20 12/16/21 04:30 BP 147/88 12/16/21 04:30 Pulse Ox 97 12/16/21 04:30 Intake & Output 12/15/21 12/16/21 12/16/21 18:59 06:59 18:59 Intake Total 540 650 Balance 540 650 Weight 61.235 kg Intake: Intake, IV Titration 350 Amount Sodium Chloride 0.9% 1, 350 000 ml @ 50 mls/hr IV . Q20H [facility] Rx#:[id number] Oral 540 100 Blood Product 200 Other: Voiding Method Bedpan Bedpan Bedpan # Voids 6 5 - Exam Gen: This is a 65-year-old female patient, up in a chair at the bedside, on room air, in no acute distress Head exam was generally normal. There was no scleral icterus or corneal arcus. Mucous membranes were moist. HEENT: Head is atraumatic, normocephalic. Pupils equal, round. Sclerae is anicteric. NECK: Supple. No JVD. No lymphadenopathy. No thyromegaly. LUNGS: Clear to auscultation. No wheezes or rhonchi. No intercostal retractions. HEART: Regular rate and rhythm. No murmur. ABDOMEN: Soft. Bowel sounds are present. No masses. No tenderness. Ostomy with formed stool. EXTREMITIES: No pedal edema. No calf tenderness. NEUROLOGICAL: Patient is awake, alert and oriented x3. Right sided spastic hemiplegia, aphasia. - Labs CBC & Chem 7: 12/13/21 17:57 12/14/21 15:59 Labs: Microbiology - Last 24 Hours (Table) 12/13/21 23:00 Blood Culture - Preliminary Blood No Growth after 48 hours 12/13/21 22:45 Blood Culture - Preliminary Blood No Growth after 48 hours Assessment and Plan Assessment: 1 COPD exacerbation, no clear indication for pneumonia. Could be a bout of bronchitis that was treated on outpatient basis. Has some limited congestion. CAT scan of the chest showing atelectatic changes in lung bases bilaterally 2 acute hypoxic respiratory failure currently on 2 L of oxygen by nasal cannula 3 history of CVA with expressive aphasia and right-sided weakness 4 hyperlipidemia 5 degenerative arthritis 6 ALLERGIC rhinitis 7 overactive bladder Plan The patient was seen and evaluated Stable from the pulmonary standpoint Home once cleared medically I have personally seen and examined the patient, performed the documentation and the assessment and plan as written. Number of minutes spent on the visit: 10. I have personally seen and examined the patient and reviewed the documentation. I performed a joint evaluation with the nurse practitioner in this evaluation was done more than 15 minutes. I fully agree with the documentation above and the plan of care.
== END 2021-12-16 13:45 | DRG 190 ==
LOC: EC 15:56 → 5NMEDONC 21:43
PROVIDERS: ADMIT Internal Medicine; ATTEND Internal Medicine
DX: J44.1 Chronic obstructive pulmonary disease with (acute) exacerbation (principal); J96.01 Acute respiratory failure with hypoxia; J98.11 Atelectasis; I69.351 Hemiplegia and hemiparesis following cerebral infarction affecting right dominant side; K21.9 Gastro-esophageal reflux disease without esophagitis; M19.90 Unspecified osteoarthritis, unspecified site; I69.320 Aphasia following cerebral infarction; E55.9 Vitamin D deficiency, unspecified; R15.9 Full incontinence of feces; I69.398 Other sequelae of cerebral infarction; E78.5 Hyperlipidemia, unspecified; E86.0 Dehydration; F32.A Depression, unspecified; G89.4 Chronic pain syndrome; M25.551 Pain in right hip; W19.XXXA Unspecified fall, initial encounter; J30.2 Other seasonal allergic rhinitis; Y92.009 Unspecified place in unspecified non-institutional (private) residence as the place of occurrence of the external cause; M25.552 Pain in left hip; K76.9 Liver disease, unspecified; N20.0 Calculus of kidney; N32.81 Overactive bladder; R31.9 Hematuria, unspecified; Z20.822 Contact with and (suspected) exposure to COVID-19; Z79.52 Long term (current) use of systemic steroids; Z79.82 Long term (current) use of aspirin; Z79.899 Other long term (current) drug therapy; Z82.3 Family history of stroke; Z82.49 Family history of ischemic heart disease and other diseases of the circulatory system; Z87.891 Personal history of nicotine dependence; Z90.710 Acquired absence of both cervix and uterus; Z93.3 Colostomy status
CPT/HCPCS: 36415; 71045; 71275; 73521; 74176; 76705; 80053; 81001; 82150; 82565; 83605; 83690; 83880; 84520; 85025; 85652; 86140; 87040; 87636; 93005; 96361; 96374; 99285